=== PATIENT | male | born 1960 | race Caucasian/White ===

== ENCOUNTER 2017-10-25 12:08 | Emergency (ER) | payer OTHER ==
[~2017-10-25] VITALS: Ht 177.8 cm; Wt 100.0 kg
[2017-10-25 12:20] VITALS: BP 146/88; PULSE 71; RESP 18; TEMP 98.1; O2SAT 100
[2017-10-25 12:37] LABS: AUTOMATED NEUTROPHIL # 2.2 TH/MM3 (1.8-7.7); BASOPHIL % 0.8 % (0.0-2.0); EOSINOPHIL # 0.3 TH/MM3 (0-0.4); EOSINOPHIL % 5.9 % (0.0-4.0); HEMATOCRIT 34.5 % (39.0-51.0); HEMOGLOBIN 11.1 GM/DL (13.0-17.0); LYMPH % 45.5 % (9.0-44.0); LYMPHOCYTE # 2.4 TH/MM3 (1.0-4.8); MEAN CELL VOLUME 75.9 FL (80.0-100.0); MEAN CORPUSCULAR HEMOGLOBIN 24.4 PG (27.0-34.0); MEAN CORPUSCULAR HGB CONC 32.1 % (32.0-36.0); MEAN PLATELET VOLUME 8.2 FL (7.0-11.0); MONO % 6.9 % (0.0-8.0); MONOCYTE # 0.4 TH/MM3 (0-0.9); NEUT % 40.9 % (16.0-70.0); PLATELET COUNT 254 TH/MM3 (150-450); RED BLOOD COUNT 4.55 MIL/MM3 (4.50-5.90); RED CELL DISTRIBUTION WIDTH 16.3 % (11.6-17.2); WHITE BLOOD COUNT 5.3 TH/MM3 (4.0-11.0)
[2017-10-25 12:41] VITALS: RESP 18; O2SAT 100
[2017-10-25 12:42] LABS: CHLORIDE 104 MEQ/L (98-107); SODIUM (NA) 138 MEQ/L (136-145)
[2017-10-25] MEDS ORDERED: ASPIRIN 325 MG TAB PO ONE (12:45)
[2017-10-25 12:46] LABS: ALBUMIN 3.6 GM/DL (3.4-5.0); BICARBONATE 29.1 MEQ/L (21.0-32.0); BLOOD UREA NITROGEN 17 MG/DL (7-18); CALCIUM 8.6 MG/DL (8.5-10.1); GLUCOSE,RANDOM 96 MG/DL (74-106); MAGNESIUM 1.9 MG/DL (1.5-2.5)
--- NOTE | 2017-10-25 12:48 | RADRPT ---
EXAM DATE/TIME: 10/25/2017 12:33 [facility] COMPARISON: No previous studies available for comparison. INDICATIONS : Chest pain. MEDICAL HISTORY : diabetic. SURGICAL HISTORY : None. ENCOUNTER: Initial ACUITY: 2 days PAIN SCORE: 0/10 LOCATION: chest FINDINGS: A single view of the chest demonstrates the lungs to be symmetrically aerated without evidence of mas s, infiltrate or effusion. The cardiomediastinal contours are unremarkable. Osseous structures are intact. CONCLUSION: 1. No acute cardiopulmonary disease. Meliton Murray MD on October 25, 2017 at 12:46 Board Certified Radiologist. This report was verified electronically.
[2017-10-25 12:49] LABS: ALT (GPT) 20 U/L (12-78); AST (GOT) 22 U/L (15-37); CREATININE 0.81 MG/DL (0.60-1.30); GLOMERULAR FILTRATION RATE 98 ML/MIN (>89)
[2017-10-25 12:51] LABS: TOTAL PROTEIN 7.1 GM/DL (6.4-8.2)
[2017-10-25 12:52] LABS: ALKALINE PHOSPHATASE 80 U/L (45-117)
[2017-10-25 12:53] LABS: TOTAL BILIRUBIN ADULT 0.3 MG/DL (0.2-1.0)
[2017-10-25 12:55] LABS: TROPONIN I LESS THAN 0.02 NG/ML (0.02-0.05)
[2017-10-25] MEDS ORDERED: MULTTAB67 PO (12:57)
[2017-10-25] MEDS ORDERED: CALC12502 (12:57)
[2017-10-25] MEDS ORDERED: METF500T PO (12:57)
[2017-10-25] MEDS ORDERED: BUSP5TAB PO (12:57)
[2017-10-25] MEDS ORDERED: GABA800T PO (12:57)
[2017-10-25] MEDS ORDERED: NALT50TA3 PO (12:57)
[2017-10-25] MEDS ORDERED: LEXA20TA PO (12:57)
[2017-10-25] MEDS ORDERED: ASPI-516 CHEW (12:57)
[2017-10-25] MEDS ORDERED: CALC1TAB87 PO (12:58)
[2017-10-25 13:00] VITALS: BP_SYST 123; BP_SYST 127; BP_DIAS 81; BP_DIAS 83
[2017-10-25 13:12] LABS: PROTHROMBIN TIME - PATIENT 9.8 SEC (9.8-11.6)
[2017-10-25 13:16] LABS: OVALOCYTES 1+ (NORMAL)
--- NOTE | 2017-10-25 13:34 | PD ---
HPI Chief Complaint: Right Upper Back Pain Time Seen by Provider: 12:20 Travel History International Travel<30 days: No Contact w/Intl Traveler<30days: No Traveled to known affect area: No History of Present Illness HPI This is a 56-year-old male who presents for right upper back pain. He states that this morning, he had just reached down to pick something up when he developed pain in the right upper back/shoulder blade. It is aggravated by touch and movement of the right arm. He denies associated chest pain, shortness of breath, diaphoresis. No recent lower extremity edema, calf pain, immobility, history of DVT or PE. The pain is sore in nature. No prior treatment. No focal weakness, numbness, tingling, saddle paresthesias, bowel or bladder dysfunction. No fevers, chills, IV drug abuse. Symptoms are mild in severity. PFSH Past Medical History Anxiety: Yes Diabetes: Yes (type 2 ) Patient Takes Glucophage: Yes (Metformin 10/25/17 0815) Migraines: Yes Tetanus Vaccination: > 5 Years Influenza Vaccination: Yes Past Surgical History Abdominal Surgery: Yes (gastric bypass) Cholecystectomy: Yes Thoracic Surgery: Yes (back ) Other Surgery: Yes (throat) Social History Alcohol Use: No Tobacco Use: No Substance Use: No Allergies-Medications (Allergen,Severity, Reaction): Coded Allergies: latex (Verified Allergy, Unknown, 10/25/17) Reported Meds & Prescriptions Reported Meds & Active Scripts Active Reported Calcium 600 with Vitamin D (Calcium Carbonate-Cholecalciferol) 600-400 mg-Unit Tab 1 Tab PO DAILY Multiple Vitamin 1 Tab 1 Tab PO DAILY Metformin (Metformin HCl) 500 Mg Tab 750 Mg PO BIDPC Naltrexone (Naltrexone HCl) 50 Mg Tab 50 Mg PO DAILY Buspirone (Buspirone HCl) 5 Mg Tab 5 Mg PO BID Gabapentin 800 Mg Tab 800 Mg PO BID Aspirin 81 Mg Chew 81 Mg CHEW DAILY Lexapro (Escitalopram Oxalate) 20 Mg Tab 20 Mg PO DAILY Review of Systems Except as stated in HPI: all other systems reviewed are Neg Physical Exam Narrative GENERAL: Alert, well nourished, well appearing patient resting on the bed in no acute distress. Vital Signs reviewed SKIN: Focused skin assessment warm/dry. HEAD: Atraumatic. Normocephalic. EYES: Pupils equal and round. No scleral icterus. No injection or drainage. ENT: No nasal bleeding or discharge. Mucous membranes pink and moist. NECK: Trachea midline. No JVD. Spontaneous, painless full range of motion with no meningismus CARDIOVASCULAR: Regular rate and rhythm. No murmur appreciated. Extremities warm and well perfused with bounding peripheral pulses RESPIRATORY: No accessory muscle use. Clear to auscultation. Breath sounds equal bilaterally. Breathing easily and speaking in full sentences GASTROINTESTINAL: Abdomen soft, non-tender, nondistended. Normal bowel sounds. No rigid, rebound, guarding MUSCULOSKELETAL: No obvious deformities. No clubbing. No cyanosis. No edema. Compartments are soft. Positive tenderness at right upper back near the scapula. Patient has pain with lifting right arm above head. He has symmetric and bounding upper and lower extremity peripheral pulses. No midline tenderness to palpation along thoracic spine. NEUROLOGICAL: Awake and alert. No obvious cranial nerve deficits. Motor grossly within normal limits. Normal speech. Sensation intact. Normal gait Data Data Last Documented VS Vital Signs Date Time Temp Pulse Resp B/P (MAP) Pulse Ox O2 Delivery O2 Flow Rate FiO2 10/25/17 15:12 62 17 113/74 (87) 100 Room Air 10/25/17 12:20 98.1 Orders Orders Electrocardiogram (10/25/17 12:21) Ckmb (Isoenzyme) Profile (10/25/17 12:21) Complete Blood Count With Diff (10/25/17 12:21) Comprehensive Metabolic Panel (10/25/17 12:21) Magnesium (Mg) (10/25/17 12:21) Prothrombin Time / Inr (Pt) (10/25/17 12:21) Act Partial Throm Time (Ptt) (10/25/17 12:21) Troponin I (10/25/17 12:21) Chest, Single Ap (10/25/17 12:21) Ecg Monitoring (10/25/17 12:21) Bilateral Bp Monitoring (10/25/17 12:21) Iv Access Insert/Monitor (10/25/17 12:21) Oximetry (10/25/17 12:21) Oxygen Administration (10/25/17 12:21) Aspirin (Aspirin) (10/25/17 12:45) Ct Pulmonary Angiogram (10/25/17 13:09) Iohexol 350 Inj (Omnipaque 350 Inj) (10/25/17 14:19) Ketorolac Inj (Toradol Inj) (10/25/17 15:00) Electrocardiogram (10/25/17 15:21) Ckmb (Isoenzyme) Profile (10/25/17 15:21) Troponin I (10/25/17 15:21) Labs Laboratory Tests Test 10/25/17 12:30 10/25/17 15:30 White Blood Count 5.3 TH/MM3 Red Blood Count 4.55 MIL/MM3 Hemoglobin 11.1 GM/DL Hematocrit 34.5 % Mean Corpuscular Volume 75.9 FL Mean Corpuscular Hemoglobin 24.4 PG Mean Corpuscular Hemoglobin Concent 32.1 % Red Cell Distribution Width 16.3 % Platelet Count 254 TH/MM3 Mean Platelet Volume 8.2 FL Neutrophils (%) (Auto) 40.9 % Lymphocytes (%) (Auto) 45.5 % Monocytes (%) (Auto) 6.9 % Eosinophils (%) (Auto) 5.9 % Basophils (%) (Auto) 0.8 % Neutrophils # (Auto) 2.2 TH/MM3 Lymphocytes # (Auto) 2.4 TH/MM3 Monocytes # (Auto) 0.4 TH/MM3 Eosinophils # (Auto) 0.3 TH/MM3 Basophils # (Auto) 0.0 TH/MM3 CBC Comment AUTO DIFF Differential Comment AUTO DIFF CONFIRMED Ovalocytes 1+ Prothrombin Time 9.8 SEC Prothromb Time International Ratio 1.0 RATIO Activated Partial Thromboplast Time 23.9 SEC Blood Urea Nitrogen 17 MG/DL Creatinine 0.81 MG/DL Random Glucose 96 MG/DL Total Protein 7.1 GM/DL Albumin 3.6 GM/DL Calcium Level 8.6 MG/DL Magnesium Level 1.9 MG/DL Alkaline Phosphatase 80 U/L Aspartate Amino Transf (AST/SGOT) 22 U/L Alanine Aminotransferase (ALT/SGPT) 20 U/L Total Bilirubin 0.3 MG/DL Sodium Level 138 MEQ/L Potassium Level 3.9 MEQ/L Chloride Level 104 MEQ/L Carbon Dioxide Level 29.1 MEQ/L Anion Gap 5 MEQ/L Estimat Glomerular Filtration Rate 98 ML/MIN Total Creatine Kinase 65 U/L 55 U/L Troponin I LESS THAN 0.02 NG/ML LESS THAN 0.02 NG/ML MDM Medical Decision Making Medical Screen Exam Complete: Yes Emergency Medical Condition: Yes Medical Record Reviewed: Yes Interpretation(s) EKG shows sinus rhythm with a rate of 71. No acute ST elevation. Repeat EKG shows sinus rhythm with a rate of 60. No acute ST elevation. Similar to prior Laboratory Tests Test 10/25/17 12:30 10/25/17 15:30 White Blood Count 5.3 TH/MM3 Red Blood Count 4.55 MIL/MM3 Hemoglobin 11.1 GM/DL Hematocrit 34.5 % Mean Corpuscular Volume 75.9 FL Mean Corpuscular Hemoglobin 24.4 PG Mean Corpuscular Hemoglobin Concent 32.1 % Red Cell Distribution Width 16.3 % Platelet Count 254 TH/MM3 Mean Platelet Volume 8.2 FL Neutrophils (%) (Auto) 40.9 % Lymphocytes (%) (Auto) 45.5 % Monocytes (%) (Auto) 6.9 % Eosinophils (%) (Auto) 5.9 % Basophils (%) (Auto) 0.8 % Neutrophils # (Auto) 2.2 TH/MM3 Lymphocytes # (Auto) 2.4 TH/MM3 Monocytes # (Auto) 0.4 TH/MM3 Eosinophils # (Auto) 0.3 TH/MM3 Basophils # (Auto) 0.0 TH/MM3 CBC Comment AUTO DIFF Differential Comment AUTO DIFF CONFIRMED Ovalocytes 1+ Prothrombin Time 9.8 SEC Prothromb Time International Ratio 1.0 RATIO Activated Partial Thromboplast Time 23.9 SEC Blood Urea Nitrogen 17 MG/DL Creatinine 0.81 MG/DL Random Glucose 96 MG/DL Total Protein 7.1 GM/DL Albumin 3.6 GM/DL Calcium Level 8.6 MG/DL Magnesium Level 1.9 MG/DL Alkaline Phosphatase 80 U/L Aspartate Amino Transf (AST/SGOT) 22 U/L Alanine Aminotransferase (ALT/SGPT) 20 U/L Total Bilirubin 0.3 MG/DL Sodium Level 138 MEQ/L Potassium Level 3.9 MEQ/L Chloride Level 104 MEQ/L Carbon Dioxide Level 29.1 MEQ/L Anion Gap 5 MEQ/L Estimat Glomerular Filtration Rate 98 ML/MIN Total Creatine Kinase 55 U/L Troponin I LESS THAN 0.02 NG/ML Last [address] Angiography 10/25/17 1309 Signed Impressions: Service Date/Time: October 14:02 - CONCLUSION: No acute disease or acute pulmonary embolism. Milton Geiger MD Chest X-Ray 10/25/17 1221 Signed Impressions: Service Date/Time: October 12:33 - CONCLUSION: 1. No acute cardiopulmonary disease. Meliton Murray MD Differential Diagnosis Musculoskeletal pain, muscle strain, atypical angina, PE, dissection Narrative Course The patient was placed on the teletypesetter monitor. IV access was established. Labs , imaging were performed. Patient was given aspirin and Toradol with improvement in his symptoms. He had a second EKG and second troponin performed both of which were unchanged and remained normal. The patient has reproducible tenderness on the right upper back. He shows no evidence of spinal compromise or neurovascular compromise. I feel this is less likely to be atypical angina given the reproducibility, pain with movement of right shoulder and 2 negative serial troponins and EKGs. I had a long discussion with the patient regarding results of the workup. Plan for discharge with supportive care and very close outpatient follow-up with primary physician. Patient understands the importance of close outpatient follow-up. He understands he may require further testing and treatment as an outpatient. He understands strict return indications. He is comfortable with this plan and eager to go home. Diagnosis Primary Impression: Upper back pain on right side Referrals: Primary Care Physician 1 day Patient Instructions: General Instructions Additional Instructions: Use Tylenol and ibuprofen as needed for pain. Follow up very closely with primary physician. Call first thing in the morning to make an appointment either for tomorrow or October 29. You may require further testing and treatment as an outpatient. Return if you have worsening symptoms or chest pain, shortness of breath, other concerns. We are happy to see you at any time. Med/Other Pt SpecificInfo: No Change to Meds Disposition: 01 DISCHARGE HOME Condition: Stable Donna Pnea MD Oct 25, 2017 13:34
[2017-10-25] MEDS ORDERED: IOHEXOL 350 MG/ML 10 ML VIAL (for RAD DIAG) IVCONTRAST ONE (14:19)
--- NOTE | 2017-10-25 14:37 | RADRPT ---
EXAM DATE/TIME: 10/25/2017 14:02 [facility] COMPARISON: No previous studies available for comparison. INDICATIONS : Right chest, back and shoulder pain. IV CONTRAST: 85 cc Omnipaque 350 (iohexol) IV RADIATION DOSE: 18.31 CTDIvol (mGy) MEDICAL HISTORY : Diabetes mellitus type 2. SURGICAL HISTORY : Gastric bypass. ENCOUNTER: Initial ACUITY: 1 day PAIN SCALE: 9/10 LOCATION: Right chest TECHNIQUE: Volumetric scanning of the chest was performed using a pulmonary embolism protocol MIP images were re constructed. Using automated exposure control and adjustment of the mA and/or kV according to patien t size, radiation dose was kept as low as reasonably achievable to obtain optimal diagnostic quality images. DICOM format image data is available electronically for review and comparison. Follow-up recommendations for detected pulmonary nodules are based at a minimum on nodule size and pa tient risk factors according to Fleischner Society Guidelines. FINDINGS: PULMONARY ARTERIES: No filling defects are seen in the pulmonary arteries through the segmental level. LUNGS: There is no consolidation or pneumothorax . No concerning pulmonary nodule is visualized. PLEURAE: There is no pleural thickening or pleural effusion. MEDIASTINUM: There is good visualization of the great vessels of the middle mediastinum. No evidence of mediastin al or hilar adenopathy/mass. MUSCULOSKELETAL: Within normal limits for patient age. MISCELLANEOUS: The visualized upper abdominal organs demonstrate no acute abnormality. CONCLUSION: No acute disease or acute pulmonary embolism. Milton Geiger MD on October 25, 2017 at 14:34 Board Certified Radiologist. This report was verified electronically.
[2017-10-25] MEDS ORDERED: KETOROLAC TROMETHAMINE 30 MG/ML (IVP) VIAL IV PUSH ONE (15:00)
[2017-10-25 15:12] VITALS: BP 113/74; PULSE 62; RESP 17; O2SAT 100
[2017-10-25 15:57] LABS: TROPONIN I LESS THAN 0.02 NG/ML (0.02-0.05)
[2017-10-25 17:04] VITALS: BP 128/77
--- NOTE | 2017-10-27 00:51 | EKG ---
Date Performed: 10/25/2017 Time Performed: 15:46:48 PTAGE: 56 years EKG: Sinus rhythm NORMAL ECG PREVIOUS TRACING : 10/25/2017 12.13 Since the prior tracing, there has been no significant fernandez DOCTOR: Catherine Joshi Interpretating Date/Time 10/27/2017 00:50:49
--- NOTE | 2017-10-27 01:52 | EKG ---
Date Performed: 10/25/2017 Time Performed: 12:13:36 PTAGE: 56 years EKG: Sinus rhythm NORMAL ECG NO PREVIOUS TRACING DOCTOR: Catherine Joshi Interpretating Date/Time 10/27/2017 01:50:23
== END 2017-10-25 17:06 | disposition home or self-care (01) ==
LOC: PHED 12:08
DX: M54.89 Other dorsalgia (principal); E11.9 Type 2 diabetes mellitus without complications; F41.9 Anxiety disorder, unspecified; Z98.84 Bariatric surgery status; Z79.82 Long term (current) use of aspirin; Z79.84 Long term (current) use of oral hypoglycemic drugs; Z79.899 Other long term (current) drug therapy
CPT/HCPCS: 71045; 71275; 80053; 82550; 83735; 84484; 85025; 85610; 85730; 93005; 96374; 99285; J1885; Q9967